=== PATIENT | female | born 1980 | race Caucasian/White ===

== ENCOUNTER 2017-06-20 17:23 | Inpatient (IN) | payer MEDICAID ==
[~2017-06-20] VITALS: Ht 165.1 cm; Wt 67.6 kg
--- NOTE | ~2017-06-20 | NM22 ---
[facility] A Service [facility] RADIOLOGY TEXT RESULTS PATIENT: DAISY DURAN LOCATION: [facility] : 84 UNIT #: [id number] AGE: [address]: Mario Santana MD SEX: F ORDER DR: [id number] [place], [place] [address] [id number] I MR#: [id number] Acc #: [id number] NAME: DAISY DURAN : 1980 SEX: F STUDY DATE/TIME: 06/22/2017 8:57 UNIT: C2A ROOM: 232 STUDY DESCRIPTION: NM Hepatobiliary W GB Pharm Attending Physician: Mario Santana M.D. Ordering Physician: Pravin Wyatt III, M.D. Primary Care Physician: No Primary Care Physician MEDICAL IMAGING REPORT This report is preliminary unless electronic signature is present EXAM Hepatic biliary scan INDICATION Upper abdominal pain for the past 4 days with nausea, vomiting. HISTORY Hepatitis C. PROCEDURE Patient was administered 5.98 mCi technetium labeled Choletec. Gallbladder stimulation was not performed secondary to order request. COMPARISON CT from 06/18/2017 FINDINGS Liver shows symmetric extraction of the radiotracer. The liver shows persistent radiotracer accumulation on the 120 minutes. There is no visualization of the gallbladder. IMPRESSION 1. The liver shows uptake of radiotracer but no significant excretion. This suggests hepatic dysfunction. 2. There is nonvisualization of the gallbladder. This is nonspecific and could be related view, cystic duct obstruction but could also be related to the liver dysfunction. 3. Findings were discussed with the patient's nurse at the time of this dictation. She voiced that she would relay these findings to physicians caring for the patient. [facility] A Service [facility] RADIOLOGY TEXT RESULTS PATIENT: DAISY DURAN LOCATION: [place] [address]- : 82 UNIT #: [id number] AGE: [address]: Mario Santana MD SEX: F ORDER DR: Dictated by... Dipesh Mak M.D. THIS IS AN ELECTRONICALLY VERIFIED REPORT Dipesh Mak M.D. at 06/23/2017 8:29 AM MARIA DOLORES/bethel TD: 06/22/2017 21:48 JOB #: [id number] MEDICAL IMAGING REPORT Page 1 of 1 COPY
--- NOTE | ~2017-06-20 | CT2 ---
[facility] A Service of [facility] RADIOLOGY TEXT RESULTS PATIENT: DAISY DURAN LOCATION: [facility] 305- : 82 UNIT #: [id number] AGE: [address]: Mario Santana MD SEX: F ORDER DR: [id number] [facility] [address]. [place], [place] [address] [id number] I MR#: [id number] Acc #: [id number] NAME: DAISY DURAN : 1980 SEX: F STUDY DATE/TIME: 06/20/2017 21:59 UNIT: C3A U ROOM: [facility] STUDY DESCRIPTION: CT Abd and Pelv W Cont Attending Physician: Mario Santana M.D. Ordering Physician: Davy Card D.O. Primary Care Physician: Primary Care Physician No MEDICAL IMAGING REPORT This report is preliminary unless electronic signature is present EXAM Abdomen and pelvis CT, 06/20 at 21:59 INDICATION Abdominal pain in the right upper quadrant with nausea and vomiting for 3 days. History of hepatitis C. TECHNIQUE Axial images were obtained through the abdomen and pelvis following IV contrast administration. Multiplanar reformats were obtained. This CT exam was performed with one or more of the following radiation dose reduction techniques: automatic exposure control, adjustment of mA and/or kV according to patient size, and iterative reconstruction. COMPARISON 09/26/2016 FINDINGS ABDOMEN: For description of findings in the lung bases, see the chest CT report dictated separately. The gallbladder is markedly abnormal. There is marked gallbladder wall thickening and I cannot exclude some sloughing of the mucosa. Findings are highly suspicious for acute cholecystitis. There is some periportal edema in the liver which is nonspecific but may indicate some inflammation. No biliary obstruction is seen. There is inflammatory fat stranding in the gallbladder fossa. The remaining solid organs are normal. The unopacified GI tract is grossly normal. PELVIS: The appendix is normal. Moderate stool volume suggests constipation. Urinary bladder is normal. There is a trace amount of free fluid. Solid pelvic organs are within normal limits. IMPRESSION 1. Findings are highly suspicious for acute cholecystitis. There is STS. [facility] A Service of [facility] RADIOLOGY TEXT RESULTS PATIENT: DAISY DURAN LOCATION: [facility] 305-01 : 84 UNIT #: [id number] AGE: [address]: Mario Santana MD SEX: F ORDER DR: gallbladder wall thickening with surrounding inflammatory fat stranding. Additionally, I cannot exclude sloughing of the mucosa. No biliary obstruction is identified. Consider HIDA scan for follow up if needed. 2. Mild periportal edema in the liver may indicate a mild degree of inflammation. This is nonspecific. 3. Small amount of free fluid in the abdomen and pelvis. 4. Moderate stool volume in the lower colon compatible with constipation. No bowel obstruction is seen. The appendix is normal. Dictated by... Bobo Moon Jr., M.D. THIS IS AN ELECTRONICALLY VERIFIED REPORT Bobo Moon Jr., M.D. at 06/21/2017 9:20 PM RAZ/osmar TD: 06/21/2017 12:20 JOB #: [id number] MEDICAL IMAGING REPORT Page 1 of 1 COPY
--- NOTE | ~2017-06-20 | CO ---
Unit #: [id number] #: [id number] Patient: DAISY DURAN [id number] [address] [place], [place] [address] [id number] I MR#: [id number] NAME: DAISY DURAN ROOM: 305 Age: 37 Sex: F Admission Date: 06/21/2017 : 1980 Attending Physician: Mario Santana M.D. Consultation Date: 06/21/2017 CONSULTATION REPORT CHIEF COMPLAINT Abdominal pain. HISTORY OF PRESENT ILLNESS This is a 37-year-old lady, who has had a 2 to 3 day history of right upper quadrant pain. She has had some nausea and vomiting. There has been no food intolerance. This is similar to previous episodes that she has sustained in August that responded to nonoperative management. PAST MEDICAL HISTORY Significant hepatitis C that she obtained through IV drug use. She also has history of seizures and alcohol abuse. She is to drink half a gallon of hard alcohol every other day. PAST SURGICAL HISTORY She has had a tubal ligation. MEDICATIONS She is on no chronic medications. ALLERGIES She denies any allergies. SOCIAL HISTORY She does smoke. She does continue to use IV drugs intermittently. She has been in and out of [facility] as well. REVIEW OF SYSTEMS Significant for jaundice. PHYSICAL EXAMINATION VITAL SIGNS: Temperature is 98.2, heart rate is 93, respiratory rate 16, blood pressure is 110/73, BMI is 23. GENERAL: She is in no acute distress. HEENT: Pupils are equal and reactive to light and accommodation. She does have some scleral icterus. NECK: Without masses or bruits. LUNGS: Show good breath sounds bilaterally with equal air exchange. CARDIAC: Shows regular rate and rhythm without murmur. ABDOMEN: Soft, nondistended. She has 1+ right upper quadrant tenderness. EXTREMITIES: Without edema or cyanosis. NEUROLOGIC: She is alert and oriented. There are no focal deficits. DIAGNOSTIC STUDIES Unit #: [id number] #: [id number] Patient: DAISY DURAN LABORATORY RESULTS: Total bilirubin 6.1, direct is 3.9. AST is 1210, ALT 1646, alkaline phosphatase is 200. White count is 9000, hemoglobin is 13.6, platelet count 212. IMAGING STUDIES: CT scan showed some gallbladder wall thickening and some pericholecystic fluid; however, this was seen on a prior CT scan from 2016. OVERALL IMPRESSION This is a lady, who has hepatitis C, elevated LFTs, and questionable acute cholecystitis. GI is to evaluate and she may need a HIDA scan tomorrow. Further recommendations are to follow. Dictated by... Pravin Wyatt III, M.D. VCL/mira TD: 06/21/2017 18:00 JOB #: [id number] CONSULTATION REPORT Page 1 of 1 X Pravin Wyatt III, MD CONSULTATION REPORT
--- NOTE | ~2017-06-20 | HP ---
Unit #: [id number] #: [id number] Patient: DAISY DURAN [id number] [address] [place], [place] [address] [id number] I MR#: [id number] NAME: DAISY DURAN ROOM: 305 Age: 37 Sex: F Admission Date: 06/21/2017 : 1980 Attending Physician: Mario Santana M.D. Primary Care Physician: No Primary Care Physician HISTORY AND PHYSICAL DIAGNOSIS ON ADMISSION Acute cholecystitis. HISTORY OF PRESENT ILLNESS This 37-year-old female presented to [facility] Emergency Room with abdominal pain. As per the patient, she was in her usual state of health when she developed abdominal pain 3 days ago, which was right-sided and in the upper abdomen. The patient stated that it seemed like her liver hurts. She stated that the pain became unbearable, so she decided to come to the hospital. She states that the pain is sharp, nonradiating, constant, severe and aggravated with movement. She is complaining of nausea and an episode of vomiting. In the ER the patient was evaluated and was admitted to the hospital for possible acute cholecystitis. The patient denies having chest pain, tightness, heaviness, shortness of air, headache or visual problems. There is no history of fever, chills, rectal bleeding, blood in urine or sore throat. The rest of the review of systems is negative. PAST MEDICAL HISTORY 1. History of chronic hepatitis C for 17 years. The patient states that she has not sought any treatment. 2. Chronic polysubstance abuse. 3. Tobacco abuse. 4. Seizure disorder. 5. Gastritis. 6. Chronic low back pain. SURGICAL HISTORY Bilateral tubal ligation. ALLERGIES There are no known drug allergies. HOME MEDICATIONS The patient denies taking any medications at home. SOCIAL HISTORY The patient smokes half pack of cigarettes per day for the past many years. She stated she has history of heavy alcohol abuse in the past, but currently she is not drinking. FAMILY HISTORY Unit #: [id number] #: [id number] Patient: DAISY DURAN The patient states her mother was an alcoholic. PHYSICAL EXAMINATION GENERAL: The patient is lying comfortably in bed, not in any obvious acute distress. VITAL SIGNS: Vital signs reveal a temperature of 98.2, pulse 82 per minute, respiratory rate 18 per minute, blood pressure 130/80. Pulse oximetry is 99%. HEENT: Examination revealed no conjunctival congestion. Sclera is nonicteric. NECK: Neck is supple. Trachea is central. RESPIRATORY: Examination revealed breath sounds are equal bilaterally. There are no wheezes or crackles. HEART: Regular rate and rhythm. S1, S2. ABDOMEN: Abdomen is soft. There is mild right upper quadrant tenderness present. There is no rebound tenderness, rigidity or guarding. SKIN: Skin is warm and dry. NEUROLOGIC: The patient is alert to person, place and time. DIAGNOSTIC STUDIES LABS ON ADMISSION: The patient's creatinine is 0.6, sodium 131, potassium 3.4, total bilirubin 5.6, AST 874, ALT 1,297, lipase 11. WBC is 9.7, hemoglobin 12.4, platelet count 193. D-dimer was 1,834. IMAGING: The patient had a CT scan done, which, as per preliminary report, revealed pericholecystic fluid. ASSESSMENT AND PLAN 1. Abdominal pain. The patient has been seen by Dr. Wyatt who has recommended to do a hepato-iminodiacetic acid most likely tomorrow and to monitor the patient's lab work. 2. Elevated LFTs. The patient will be seen by gastrointestinal, Dr. Fink, in consultation. 3. Hypokalemia. The patient did not have a basic metabolic panel (BMP) done today. I will do a BMP today. 4. Elevated D-dimer. The patient had a CT scan of the chest done with pulmonary embolism protocol, which, as per preliminary report, is negative for pulmonary embolism. 5. Chronic hepatitis C. I recommended the patient to seek treatment. 6. History of seizure disorder, which the patient attributes to history of alcohol abuse. 7. The patient is full code. 8. The plan was discussed in detail with the patient, who showed complete understanding. Dictated by Paty Franks TD: 06/21/2017 14:00 JOB #: [id number] Unit #: [id number] #: [id number] Patient: DAISY DURAN HISTORY AND PHYSICAL Page 1 of 1 X Farhad Mason MD HISTORY AND PHYSICAL
--- NOTE | ~2017-06-20 | CT16 ---
[facility] A Service of [facility] RADIOLOGY TEXT RESULTS PATIENT: DAISY DURAN LOCATION: [facility] 232-01 : 82 UNIT #: [id number] AGE: [address]: Mario Santana MD SEX: F ORDER DR: [id number] [facility] [address]. [place], [place] [address] [id number] I MR#: [id number] #: [id number] NAME: DAISY DURAN : 1980 SEX: F STUDY DATE/TIME: 06/20/2017 21:59 UNIT: C3A PCU ROOM: 305 STUDY DESCRIPTION: CT Angio Chest for PE Attending Physician: Mario Santana M.D. Ordering Physician: Davy Card D.O. Primary Care Physician: No Primary Care Physician MEDICAL IMAGING REPORT This report is preliminary unless electronic signature is present EXAM CT angiogram chest PE protocol dated 06/20/2017 COMPARISON Single-view chest dated 08/08/2013. HISTORY Chest pain, abdominal pain in the right upper quadrant, nausea and vomiting for 3 days. D-dimer is 1834. TECHNIQUE This CT exam was performed with one or more of the following radiation dose reduction techniques: Automatic exposure control, adjustment of mA and/or kV according to patient size, and iterative reconstruction. FINDINGS CT angiogram of the chest was obtained in the axial plane followed by sagittal and coronal reformats. Main, right and left pulmonary arteries and their proximal segmental branches do not demonstrate any filling defects to suggest pulmonary embolism. There is decreased enhancement of the aorta. No aneurysmal dilatation is seen. Heart is of normal size. Dependent atelectatic changes are noted in bilateral posterior lower lobes. No pleural effusion or pneumothorax. No lung mass or significant lymphadenopathy. Imaged upper abdomen demonstrates a predominantly decompressed gallbladder with suspicious wall thickening. Nonspecific. IMPRESSION 1. No evidence of pulmonary embolism, aortic aneurysm, or dissection. 2. Dependent atelectatic changes in bilateral lung bases. 3. There appears to be suspicious wall thickening of the gallbladder [facility] A Service of [facility] RADIOLOGY TEXT RESULTS PATIENT: DAISY DURAN LOCATION: [facility] 232-01 : [birth year] UNIT #: [id number] AGE: [address]: Mario Santana MD SEX: F ORDER DR: which is incompletely characterized on the current study. Depending on clinical concern for abdominal pain, CT of the abdomen and pelvis with contrast can be considered. Dictated by... Gabriela Marino M.D. THIS IS AN ELECTRONICALLY VERIFIED REPORT Gabriela Marino M.D. at 06/22/2017 7:32 PM CPR/aa TD: 06/21/2017 11:43 JOB #: [id number] MEDICAL IMAGING REPORT Page 1 of 1 COPY
--- NOTE | ~2017-06-20 | CO ---
Unit #: [id number] #: [id number] Patient: DAISY DURAN [id number] [address] [address] [id number] I MR#: [id number] NAME: DAISY DURAN ROOM: 232 Age: 37 Sex: F Admission Date: 06/21/2017 : 1980 Attending Physician: Mario Santana M.D. Primary Care Physician: No Primary Care Physician Consultation Date: 06/23/2017 CONSULTATION REPORT REASON FOR CONSULT Abdominal pain. HISTORY OF PRESENT ILLNESS Patient is a 37-year-old female with past medical history significant for hepatitis C diagnosed 17 years ago, alcohol abuse, polysubstance abuse including IV drug use, and seizure disorder. Patient has presented with two to three days of right upper quadrant abdominal pain associated with nausea, vomiting, and mild jaundice. In the emergency room, initial AST and ALT were markedly elevated at 1210 and 1646 respectively with bilirubin 6.1. Patient denies history of fever, chills, anorexia, recent weight loss. Currently, patient still has mild right upper quadrant pain, overall improved. Nausea and vomiting have resolved. PAST MEDICAL HISTORY 1. Hepatitis C. 2. Polysubstance abuse. 3. IV drug use with methamphetamine. 4. History of heavy alcohol use and seizure disorder. PAST SURGICAL HISTORY Tubal ligation. MEDICATIONS She is on no chronic medications. ALLERGIES No known drug allergies. SOCIAL HISTORY The patient smokes half a pack a day. History of heavy alcohol use. She used to drink up to half gallon of hard liquor every other day. States she quit drinking since August 2016, only has a drink or two every now and then. She continues to use IV methamphetamine intermittently. REVIEW OF SYSTEMS Detailed review of organ systems significant for abdominal pain, nausea, vomiting, mild jaundice. No history of fever, chills, rigors. No seizures, headaches, syncope. No history of cough, expectoration, or hemoptysis. No history of dysuria, hematuria. The rest of the review of systems is negative. PHYSICAL EXAMINATION Unit #: [id number] #: [id number] Patient: DAISY DURAN GENERAL: Patient is awake, alert, and oriented in no acute distress. VITAL SIGNS: Stable with temperature 98.6, blood pressure 113/68, heart rate 65, respirations 18. HEENT: Patient has mild scleral icterus. No lymphadenopathy. No peripheral edema. LUNGS: Clear to auscultation bilaterally. CARDIOVASCULAR: Regular rate and rhythm. No murmur. ABDOMEN: Soft, nondistended. Mild tenderness with palpation in right upper quadrant. No guarding. Liver is palpable with mild tenderness. Spleen is not palpable. Bowel sounds normal. DIAGNOSTIC STUDIES LABORATORY: BUN and creatinine within normal limits. AST and ALT 415 and 824 respectively. Initial AST was 1210, ALT 1646. Total bilirubin is 5.1, down from 6.1 on admission. CBC notable for WBC 10.8, hemoglobin 12, and platelets 189,000. IMAGING: Abdominal CT showed gallbladder wall thickening with surrounding inflammatory fat stranding suspicious for acute cholecystitis. Chest CT showed no evidence of pulmonary embolism. HIDA scan was also done and the liver shows uptake of the tracer but no significant excretion suggesting hepatic dysfunction. There is non visualization of the gallbladder. CLINICAL IMPRESSION AND PLAN Patient with acute onset of right upper quadrant abdominal pain with elevated bilirubin and significantly elevated transaminases. The patient has history of hepatitis B and C as well as continued IV drug use. Surgery has been consulted and unlikely acute cholecystitis, no surgery is indicated at this time. Patient most likely has (1) hepatitis B or C. No other intervention is indicated at this time. Patient will require outpatient treatment either at [facility] or with Dr. Tarik Fink. The patient and plan of care discussed in detail with Dr. Fink. Further recommendations to follow. Thank you very much for asking us to see this patient. We appreciate the consult. Dictated by... Yolande Montero APRN for Paty Cardenas/donald TD: 06/24/2017 08:58 JOB #: [id number] Unit #: [id number] #: [id number] Patient: DAISY DURAN CONSULTATION REPORT Page 1 of 1 X X CONSULTATION REPORT
[~2017-06-20 17:23] MED LIST: BACTRIM DS TABL1 TA1 PO; BACTRIM DS TABL1 TA2 PO; BENTYL20 MG PO; CIPRO PO; CLEOCIN150 M1 PO; DICLOFENAC PO; FAMOTIDINE PO; KEPPRA500 M1 PO; KEPPRA500 M2 PO; NO MEDICATIONS; PHENERGAN PO; PHENERGAN SUPP25 MG PR; PHENERGAN25 M1 PO; TRAMADOL HCL50 M1 PO; TYLENOL #3 PO; VICODIN 5/500 T1 TAB PO; ZITHROMAX PO; ZOFRAN ODT4 MG PO; ZOFRAN ODT4 MG/UDTAB SL; ZOFRAN SL; ZOFRANODT PO
[2017-06-20 18:59] LABS: POC - CKMB <1.0 ng/mL (0.0-7.9); POC - TROPONIN <0.05 ng/mL (<=0.05)
[2017-06-20 19:10] LABS: BASOPHIL# 0.1 X10e3 (0-0.3); BASOPHIL% 1.2 % (0-2.5); EOSINOPHIL# 0.2 X10e3 (0-0.7); EOSINOPHIL% 1.9 % (0.0-7.0); HEMATOCRIT 40.5 % (35.0-45.0); HEMOGLOBIN 13.6 gm/dL (12.0-16.0); LYMPHOCYTE# 3.9 X10e3 (1.0-3.5); LYMPHOCYTE% 43.4 % (17.0-45.0); MEAN CELL VOLUME 89.5 FL (83-96); MEAN CORPUSCULAR HEMOGLOBIN 30.1 PG (28-34); MEAN CORPUSCULAR HGB CONC 33.6 g/dL (30-36); MEAN PLATELET VOLUME 10.1 FL (6.5-11.5); MONOCYTE# 0.8 X10e3 (0-1.0); MONOCYTE% 9.1 % (3.0-12.0); NEUTROPHIL% 44.4 % (40-75); RED BLOOD COUNT 4.53 X10e (3.90-5.30); RED CELL DISTRIBUTION WIDTH 15.3 % (11.0-15.5)
[2017-06-20 19:20] LABS: DIFF IND NO; PLATELET COUNT 212 X10e3 (140-420)
[2017-06-20 19:44] LABS: URINE SOURCE CLEAN CATCH
[2017-06-20 19:52] LABS: URINE APPEARANCE CLOUDY; URINE BLOOD TRACE (NEG); URINE COLOR DK YELLOW; URINE GLUCOSE NEG (NEG); URINE KETONE NEG (NEG); URINE LEUKOCYTE ESTERASE 2+ (NEG); URINE NITRATE POS (NEG); URINE PH 5.5 (5-8); URINE PROTEIN 1+ (NEG); URINE SPECIFIC GRAVITY 1.029 (1.003-1.035)
[2017-06-20 19:55] LABS: CULTURE INDICATED? YES; URINE BACTERIA AUWI 4+ (NEGATIVE); URINE SQUAMOUS EPITHELIAL CELL FEW /[HPF]
[2017-06-20 20:07] LABS: U HYALINE CASTS AUWI 0-2 /[LPF]; URINE BILIRUBIN POS (NEG)
[2017-06-20 20:52] LABS: ALBUMIN SERUM 3.1 g/dL (3.5-5.0); BILIRUBIN, DIRECT 3.9 mg/dL (0.0-0.2); BILIRUBIN,INDIRECT 2.2 mg/dL (0.0-0.9); BILIRUBIN,TOTAL 6.1 mg/dL (0.2-2.0); BUN/CREATININE RATIO 13.33; CALCIUM SERUM 8.6 mg/dL (8.4-10.2); CREATININE SERUM 0.6 mg/dL (0.6-1.4); GLOM FILT RATE Estimated 118.1 mL/min (>60); POTASSIUM 3.4 mmol/L (3.5-5.1); PROTEIN TOTAL SERUM 7.2 g/dL (6.0-8.3)
[2017-06-21 06:59] LABS: BASOPHIL# 0.1 X10e3 (0-0.3); EOSINOPHIL# 0.2 X10e3 (0-0.7); EOSINOPHIL% 2.1 % (0.0-7.0); HEMATOCRIT 38.2 % (35.0-45.0); HEMOGLOBIN 12.4 gm/dL (12.0-16.0); LYMPHOCYTE# 5.1 X10e3 (1.0-3.5); LYMPHOCYTE% 52.2 % (17.0-45.0); MEAN CELL VOLUME 89.6 FL (83-96); MEAN CORPUSCULAR HGB CONC 32.4 g/dL (30-36); MEAN PLATELET VOLUME 9.6 FL (6.5-11.5); MONOCYTE# 1.1 X10e3 (0-1.0); NEUTROPHIL# 3.3 X10e3 (1.5-7.1); NEUTROPHIL% 33.7 % (40-75); PLATELET COUNT 193 X10e3 (140-420); RED BLOOD COUNT 4.27 X10e (3.90-5.30); RED CELL DISTRIBUTION WIDTH 15.3 % (11.0-15.5); WHITE BLOOD COUNT 9.7 X10e3 (4.0-10.5)
[2017-06-21 07:05] LABS: DIFF IND YES
[2017-06-21 07:26] LABS: ALBUMIN SERUM 2.7 g/dL (3.5-5.0); BILIRUBIN, DIRECT 3.8 mg/dL (0.0-0.2); BILIRUBIN,INDIRECT 1.8 mg/dL (0.0-0.9); BILIRUBIN,TOTAL 5.6 mg/dL (0.2-2.0); PROTEIN TOTAL SERUM 6.3 g/dL (6.0-8.3)
[2017-06-21 07:32] LABS: ANISOCYTOSIS SL; PLATELET ESTIMATE NORMAL (NORMAL)
[2017-06-21 10:41] LABS: CALCIUM SERUM 8.6 mg/dL (8.4-10.2); CREATININE SERUM 0.5 mg/dL (0.6-1.4); GLOM FILT RATE Estimated 125.4 mL/min (>60); POTASSIUM 3.9 mmol/L (3.5-5.1)
[2017-06-22 06:02] LABS: HEMATOCRIT 38.9 % (35.0-45.0); HEMOGLOBIN 12.7 gm/dL (12.0-16.0); MEAN CELL VOLUME 89.4 FL (83-96); MEAN CORPUSCULAR HEMOGLOBIN 29.2 PG (28-34); MEAN CORPUSCULAR HGB CONC 32.7 g/dL (30-36); MEAN PLATELET VOLUME 9.8 FL (6.5-11.5); RED BLOOD COUNT 4.35 X10e (3.90-5.30); RED CELL DISTRIBUTION WIDTH 15.5 % (11.0-15.5); WHITE BLOOD COUNT 9.7 X10e3 (4.0-10.5)
[2017-06-22 06:43] LABS: ALBUMIN SERUM 2.6 g/dL (3.5-5.0); BILIRUBIN,TOTAL 6.4 mg/dL (0.2-2.0); CALCIUM SERUM 8.1 mg/dL (8.4-10.2); CREATININE SERUM 0.5 mg/dL (0.6-1.4); GLOM FILT RATE Estimated 125.4 mL/min (>60); POTASSIUM 3.4 mmol/L (3.5-5.1); PROTEIN TOTAL SERUM 6.2 g/dL (6.0-8.3)
[2017-06-23 05:47] LABS: MEAN CELL VOLUME 89.3 FL (83-96); MEAN CORPUSCULAR HEMOGLOBIN 29.8 PG (28-34); MEAN CORPUSCULAR HGB CONC 33.4 g/dL (30-36); MEAN PLATELET VOLUME 9.5 FL (6.5-11.5); RED BLOOD COUNT 4.03 X10e (3.90-5.30); RED CELL DISTRIBUTION WIDTH 15.7 % (11.0-15.5); WHITE BLOOD COUNT 10.8 X10e3 (4.0-10.5)
[2017-06-23 06:33] LABS: ALBUMIN SERUM 2.5 g/dL (3.5-5.0); BILIRUBIN,TOTAL 5.1 mg/dL (0.2-2.0); BUN/CREATININE RATIO 7.14; CALCIUM SERUM 8.4 mg/dL (8.4-10.2); CREATININE SERUM 0.7 mg/dL (0.6-1.4); GLOM FILT RATE Estimated 112.3 mL/min (>60); POTASSIUM 3.8 mmol/L (3.5-5.1)
[2017-06-23] MEDS ORDERED: PHENERGAN25 M1 PO (14:24)
[2017-06-23 15:24] LABS: INR 1.1; PROTHROMBIN TIME (PATIENT) 11.6 SECONDS (10.0-11.7)
== END 2017-06-23 15:45 | disposition home or self-care (01) | DRG 442 ==
LOC: CED 17:23 → CEDOF 06-21 00:10 → CED 06-21 00:10 → CEDOF 06-21 00:20 → C3A PCU 06-21 09:16 → C2A 06-22 16:45
PROVIDERS: Emergency Medicine; Internal Medicine; Nurse Practitioner; Surgery
PROC: B32TYZZ Computerized Tomography (CT Scan) of Left Pulmonary Artery using Other Contrast (ICD-10-PCS; principal; 2017-06-21)
PROC: B32SYZZ Computerized Tomography (CT Scan) of Right Pulmonary Artery using Other Contrast (ICD-10-PCS; 2017-06-21)
DX: B19.10 Unspecified viral hepatitis B without hepatic coma (principal); R17 Unspecified jaundice; B19.20 Unspecified viral hepatitis C without hepatic coma; G40.909 Epilepsy, unspecified, not intractable, without status epilepticus; F17.210 Nicotine dependence, cigarettes, uncomplicated; Z98.51 Tubal ligation status; F10.21 Alcohol dependence, in remission; Z81.1 Family history of alcohol abuse and dependence
CPT/HCPCS: 36415; 71275; 74177; 78227; 80048; 80053; 80076; 81003; 82553; 83690; 84484; 84703; 85025; 85027; 85379; 85610; 87086; 87088; 87186; 87350; 87517; 87522; 87806; 87902; 96361; 96374; 96375; 99285; A9537; J0696; J2270; J2405; J2543; Q9967